=== PATIENT | female | born 1995 | race Caucasian/White ===

== ENCOUNTER 2019-01-29 14:35 | Emergency (ER) | payer BC ==
[2019-01-29 14:41] VITALS: BP 134/92; PULSE 90; RESP 18; TEMP 98.6
[2019-01-29] MEDS ORDERED: LIDOCAINE 1% INJ 10MG/ML (20 ML MDV) SQ ONE (14:54)
--- NOTE | 2019-01-29 15:41 | XR ---
EXAMINATION TYPE: XR hand limited LT DATE OF EXAM: 01/29/2019 COMPARISON: NONE HISTORY: 23-year-old female pain and laceration fifth metacarpal. TECHNIQUE: 2 views FINDINGS: Soft tissue irregularity ulnar aspect of the hand likely relates to the site of laceration. No retain ed radiopaque foreign body identified. No underlying acute fracture, subluxation, or dislocation. IMPRESSION: Soft tissue injury along the ulnar aspect of the hand. No underlying acute osseous abnormality seen.
[2019-01-29] MEDS ORDERED: DIPH,PERTUS(ACELL)TETVAC-LF 0.5 ML VIAL IM ONE (16:14)
--- NOTE | 2019-01-29 16:33 | ED ---
General Adult HPI - General Chief complaint: Wound/Laceration Stated complaint: Hand Lac Time Seen by Provider: 01/29/19 14:50 Source: patient Mode of arrival: ambulatory Limitations: no limitations - History of Present Illness Initial comments: Patient is 23-year-old female presents emergency Department with a laceration of the lateral aspect of the left hand. Patient reports incident happened yesterday when she attempted to open a glass door and cut herself on the glass. Patient reports the pain is a 4 and throbbing. Patient denies numbness tingling or radiation of the pain. Patient denies taking any medication to alleviate the pain. Patient states Patient is unaware of her tetanus status. Patient denies any foreign bodies inside laceration site. - Related Data Home Medications Medication Instructions Recorded Confirmed No Known Home Medications 03/05/15 03/05/15 Allergies Allergy/AdvReac Type Severity Reaction Status Date / Time No Known Allergies Allergy Verified 03/05/15 20:21 Review of Systems ROS Statement: Those systems with pertinent positive or pertinent negative responses have been documented in the HPI. ROS Other: All systems not noted in ROS Statement are negative. Past Medical History Past Medical History: No Reported History History of Any Multi-Drug Resistant Organisms: None Reported Past Surgical History: Orthopedic Surgery Past Psychological History: No Psychological Hx Reported Smoking Status: Never smoker Past Alcohol Use History: Occasional Past Drug Use History: None Reported General Exam Limitations: no limitations General appearance: alert, in no apparent distress Head exam: Present: atraumatic, normocephalic, normal inspection Eye exam: Present: normal appearance, PERRL, EOMI Pupils: Present: normal accommodation ENT exam: Present: normal exam, mucous membranes moist Neck exam: Present: normal inspection Respiratory exam: Present: normal lung sounds bilaterally Cardiovascular Exam: Present: regular rate, normal rhythm, normal heart sounds Extremities exam: Present: normal capillary refill, other (Presented a laceration on the lateral aspect of the left hand. No erythema or swelling at the site of injury.) Back exam: Present: normal inspection, full ROM Neurological exam: Present: alert, oriented X3 Psychiatric exam: Present: normal affect, normal mood Skin exam: Present: warm, intact, normal color Course Vital Signs 01/29/19 14:39 Temperature 98.6 F Pulse Rate 90 Respiratory 18 Rate Blood Pressure 134/92 O2 Sat by Pulse 97 Oximetry Procedures - Laceration Laceration #1 Consent Obtained: verbal consent Indication: laceration Site: hand Size (cm): 3 Description: linear Depth: simple, single layer Anesthetic Used: lidocaine 1% Anesthesia Technique: local infiltration Amount (mls): 10 Pre-repair: irrigated extensively Type of Sutures: nylon Size of Sutures: 4-0 Number of Sutures: 6 Technique: simple, interrupted Patient Tolerated Procedure: well Medical Decision Making - Medical Decision Making Patient is 23-year-old male presents emergency Department with a laceration to left hand. X-ray is negative for foreign bodies. Laceration site was repaired with 6 sutures. Patient was given tetanus prophylaxis. Patient advised to return to emergency department in 10 days for suture removal or sooner if symptoms worsen. Patient advised to follow primary care. Patient advised to follow proper wound care instructions. Case discussed with physician. Disposition Clinical Impression: Laceration Disposition: HOME SELF-CARE Condition: Stable Additional Instructions: Please return to emergency department for suture removal after 10 days. Please follow up primary care. Please return to emergency department if symptoms worsen. Please follow proper wound care instructions. Is patient prescribed a controlled substance at d/c from ED?: No Referrals: Ze Fisher MD [Primary Care Provider] - 1-2 days Time of Disposition: 16:33
== END 2019-01-29 17:01 | disposition home or self-care (01) ==
LOC: EC 14:35
DX: S61.412A Laceration without foreign body of left hand, initial encounter (principal); Z23 Encounter for immunization; W25.XXXA Contact with sharp glass, initial encounter
CPT/HCPCS: 73120; 90715; 99283; 12002; 90471; J2001